=== PATIENT | female | born 1965 | race American Indian/Alaskan Native ===

== ENCOUNTER 2017-05-05 14:52 | Emergency (ER) | payer OTHER ==
[2017-05-05] MEDS ORDERED: TYLENOL PO ONE (18:05)
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
[2017-05-05 20:18] VITALS: BP 131/79
== END 2017-05-05 20:18 | disposition home or self-care (01) ==
LOC: ED 14:52
DX: M25.562 Pain in left knee (principal); M25.561 Pain in right knee; I10 Essential (primary) hypertension; E11.9 Type 2 diabetes mellitus without complications; K21.9 Gastro-esophageal reflux disease without esophagitis
CPT/HCPCS: 72100; 99283